=== PATIENT | female | born 1925 | race Caucasian/White ===

== ENCOUNTER 2017-01-16 13:47 | Emergency (ER) | payer OTHER, BC ==
[~2017-01-16] VITALS: Ht 157.5 cm; Wt 68.0 kg
[2017-01-16 13:47] VITALS: BP 157/86; PULSE 85; RESP 20; TEMP 97.8; O2SAT 98
--- NOTE | 2017-01-16 13:47 | NUR ---
Pt report given to DEBBIE Anderson.
--- NOTE | 2017-01-16 13:47 | NUR ---
Pt BIB ALS from [facility] with c/o Diarrhea and weakness x 2 days. Pt alert, responsive, confused. Pt states that she feels fine and does not have diarrhea or weakness. No recent falls or trauma reported. VSS.
--- NOTE | 2017-01-16 13:50 | NUR ---
Patient brought in by ambulance, per [facility] staff patient has been having diarrhea and weakness x 2 days. Upon assessment, patient denies diarrhea and weakness. Patient is alert x 1, name only, disoriented and confused. Patient presents strong hand gas adjuster bilateral hand, full range of motion all extermities. No other complaints/injuries per patient, none noted.
--- NOTE | 2017-01-16 13:55 | NUR ---
Patient combative, confused and disoriented, refusing lab work.
--- NOTE | 2017-01-16 14:30 | NUR ---
Patient off unit for chest xray.
[2017-01-16 14:35] LABS: BASOPHILS % (AUTO) 0.2 % (0.0-2.0); EOSINOPHILS # (AUTO) 0.4 K/uL (0.0-0.4); HEMATOCRIT 36.8 % (36-48); HEMOGLOBIN 12.1 g/dL (12.0-16.0); MEAN CORPUSCULAR HEMOGLOBIN 29 pg (27-31); MEAN CORPUSCULAR HGB CONC 33 % (32-36); MEAN CORPUSCULAR VOLUME 87 fL (79.0-98.0); MONOCYTES # (AUTO) 0.5 K/uL (0.0-1.0); MONOCYTES % (AUTO) 4.5 % (1.7-9.3); NEUTROPHILS # (AUTO) 7.5 K/uL (1.8-7.7); NEUTROPHILS % (AUTO) 72.3 % (40.0-70.0); PLATELET COUNT (AUTO) 198 K/uL (130-430); RED BLOOD CELL COUNT(AUTO) 4.21 MIL/uL (4.2-6.2); RED CELL DISTRIBUTION WIDTH 14.2 % (9.0-15.0); WHITE BLOOD COUNT (AUTO) 10.4 K/uL (4.8-10.8)
--- NOTE | 2017-01-16 14:36 | NUR ---
Patient returned from radiology, tolerated well. No signs of distress, vss noted.
[2017-01-16 14:48] LABS: ANION GAP 7 (5-15); CALCIUM 8.8 mg/dL (8.4-11.0); CHLORIDE 108 mmol/L (98-107); CREATININE 1.45 mg/dL (0.55-1.30); GLUCOSE 124 mg/dL (70-99); POTASSIUM 3.7 mmol/L (3.5-5.1); SODIUM SERUM 144 mmol/L (136-145); UREA NITROGEN, BLOOD 20 mg/dL (8-21)
[2017-01-16 15:04] LABS: ALANINE AMINOTRANSFERASE 15 U/L (12-78); ALBUMIN 3.6 g/dL (3.4-4.8); ASPARTATE AMINOTRANSFERASE 17 U/L (10-37); FREE T4 (FREE THYROXINE) 0.7 ng/dL (0.6-1.6); TOTAL BILIRUBIN 0.4 mg/dL (0.0-1.0)
[2017-01-16 15:06] LABS: ALCOHOL, BLOOD < 3 mg/dL (<10)
--- NOTE | 2017-01-16 15:30 | NUR ---
Patient combative toward staff, refused to provide urine and EKG. MD made aware. Patient remains confused and disoirented. No signs of distess, vss noted.
[2017-01-16] MEDS ORDERED: NS 500 ML IV ONE (16:15)
--- NOTE | 2017-01-16 17:30 | NUR ---
Patient resting in bed, eyes closed, positive chest rise and fall noted. No signs of distress, vss noted.
--- NOTE | 2017-01-16 19:10 | NUR ---
Called bryanna pennington to give report regarding patient x 2 at . Line repeatedly went to voice mail. Left message with Bryanna pennington in attempt to provide report on patient. Made third attempt to line . Again line straight to voice mail.
--- NOTE | 2017-01-16 19:15 | NUR ---
Patient to be transferred to [facility]. Copy of nursing notes, lab reports, EKG, Physicians Orders and X-rays to be sent with patient. Attempted to give report multiple times to DEBBIE Florian at receiving facility. Please refer to previous note regarding three attempts in providing report to receiving RN. [facility] been called for transfer. No signs of distress, vss noted.
[2017-01-16 19:58] VITALS: BP 133/65; PULSE 78; RESP 18; TEMP 98.2; O2SAT 100
== END 2017-01-16 19:58 | disposition home or self-care (01) ==
LOC: SED 13:47
DX: R19.7 Diarrhea, unspecified (principal); E11.9 Type 2 diabetes mellitus without complications; I10 Essential (primary) hypertension; F03.90 Unspecified dementia, unspecified severity, without behavioral disturbance, psychotic disturbance, mood disturbance, and anxiety
CPT/HCPCS: 36415; 71010; 74000; 80053; 82140; 83605; 83880; 84439; 84484; 85025; 85610; 87040; 96360; 99285; G0482; J7040